=== PATIENT | female | born 1960 | race Caucasian/White ===

== ENCOUNTER 2019-07-18 10:17 | Outpatient (RCR) | payer BC, SELFPAY | END 2019-08-08 23:59 | disposition home or self-care (01) | LOC: SPT 10:17 | PROVIDERS: PCP Family Medicine; Referring Provider Family Medicine; Visit Provider Family Medicine | DX: M54.42 Lumbago with sciatica, left side (principal); M54.41 Lumbago with sciatica, right side | CPT/HCPCS: 97110; 97161 ==

== ENCOUNTER 2019-09-27 09:11 | Outpatient (CLI) | payer BC, SELFPAY ==
--- NOTE | 2019-09-27 09:17 | MM_ITS ---
WS: [id number] BILATERAL DIGITAL SCREENING MAMMOGRAPHY WITH CAD CLINICAL INFORMATION: SCREENING HISTORY: Screening mammogram. No current complaints. COMPARISON: TECHNIQUE: Bilateral CC and MLO views. FINDINGS: Scattered fibroglandular densities bilaterally. No suspicious focal mass, asymmetry, calcifications, or architectural distortion. No evidence of malignancy. MM/[place] [id number] IMPRESSION: BI-RADS: 1-Negative FOLLOW UP: 1 Year Follow-up Recommend return to annual screening mammography.
== END 2019-09-27 09:12 | disposition home or self-care (01) ==
LOC: RADSHAW 09:13
PROVIDERS: PCP Family Medicine; Visit Provider Obstetrics & Gynecology
DX: Z12.31 Encounter for screening mammogram for malignant neoplasm of breast (principal)
CPT/HCPCS: 77067

== ENCOUNTER → 2019-10-18 09:12 | Outpatient (BNVA) | payer BC, SELFPAY | PROVIDERS: PCP Family Medicine; Visit Provider Family Medicine | DX: R10.2 Pelvic and perineal pain (principal); Z13.6 Encounter for screening for cardiovascular disorders; M54.42 Lumbago with sciatica, left side; M54.41 Lumbago with sciatica, right side; G89.29 Other chronic pain; Z68.28 Body mass index [BMI] 28.0-28.9, adult; F17.211 Nicotine dependence, cigarettes, in remission | CPT/HCPCS: 80053; 80061; 84450; 85025; 87070 ==

== ENCOUNTER 2019-11-21 14:07 | Outpatient (CLI) | payer BC, SELFPAY ==
--- NOTE | 2019-11-21 14:15 | US_ITS ---
WS: [id number] TRANSVAGINAL PELVIC ULTRASOUND HISTORY: pelvic pain COMPARISON: None available. Uterus: 7.3 cm x 6.0 cm x 3.4 cm. Normal size anteverted uterus. No fibroid or mass. Endometrium: 0.4 cm. Normal homogeneity. Small nabothian cysts. Right ovary: Not visualized. No adnexal mass. Left ovary: Not visualized. No adnexal mass. No free fluid. US/US transvaginal [id number] IMPRESSION: Mildly heterogeneous uterus. No fibroid identified. Normal endometrium.
== END 2019-11-21 14:08 | disposition home or self-care (01) ==
LOC: US 14:12
PROVIDERS: PCP Family Medicine; Visit Provider Family Medicine
DX: R10.2 Pelvic and perineal pain (principal)
CPT/HCPCS: 76830

== ENCOUNTER → 2020-06-17 08:30 | Outpatient (BNVA) | payer BC, SELFPAY | PROVIDERS: PCP Family Medicine; Visit Provider Obstetrics & Gynecology | DX: R39.9 Unspecified symptoms and signs involving the genitourinary system (principal); Z78.0 Asymptomatic menopausal state | CPT/HCPCS: 81000 ==

== ENCOUNTER 2020-09-25 08:19 | Outpatient (CLI) | payer BC, SELFPAY ==
[2020-09-25 08:41] VITALS: BP 128/80; BP 130/81; PULSE 82; PULSE 90; RESP 18; TEMP 36.7; TEMP 36.8; O2SAT 94; BMI 27.3
[2020-09-25 09:01] VITALS: BP 117/74; PULSE 85; RESP 18; O2SAT 95
== END 2020-09-25 08:20 | disposition home or self-care (01) ==
LOC: OPS 08:22
PROVIDERS: PCP Family Medicine; Visit Provider Nurse Practitioner
DX: U07.1 COVID-19 (principal)
CPT/HCPCS: 96365

== ENCOUNTER 2020-11-06 08:02 | Outpatient (CLI) | payer BC, SELFPAY ==
--- NOTE | 2020-11-06 08:07 | MM_ITS ---
WS: [id number] Exam: [id number] Date/Time of Exam: 11/06/2020 8:09 AM Reason For Exam: SCREENING VIEWS: MLO and CC views both breasts. Comparison made with prior exam of 04/14/2017, 06/17/2018 and 09/27/2019. Findings: There was no sign of mass, architectural distortion or suspicious calcification in either breast. Sc attered fibroglandular densities MM/[id number] Impression: BI-RADS: 2-Benign FOLLOW-UP: 1 Year Follow-up This mammogram was also analyzed by the Computer Aided Detection System R2 [employer]board [employer].
== END 2020-11-06 08:03 | disposition home or self-care (01) ==
LOC: RADSHAW 08:07
PROVIDERS: PCP Family Medicine; Visit Provider Family Medicine
DX: Z12.31 Encounter for screening mammogram for malignant neoplasm of breast (principal)
CPT/HCPCS: 77067

== ENCOUNTER 2021-02-13 12:14 | Outpatient (CLI) | payer BC, SELFPAY ==
--- NOTE | 2021-02-13 12:45 | USCV_ITS ---
Essie Shepard Age: 60 Gender: F : 1960 Exam Date: 02/13/2021 12:45 Ordering Phys: Sepideh Hunt DO Technologist: Tawanda Ruby Exam Location: [facility] – [place] Indication: PRE-SYNCOPE Risk Factors: Previous Vascular Surgery: Right Brachial BP: / Left Brachial BP: / Right Left Velocity (cm/s) Spectral Plaque Velocity (cm/s) Spectral Plaque Syst/Diast Broadening Syst/Diast Broadening 114.80/14.40 Prox CCA 126.50/ 28.20 116.90/20.90 Mid CCA 112.80/ 26.50 98.10/ 26.50 Distal CCA 111.90/ 33.30 86.20/ 21.80 Prox ICA 81.20 / 25.60 103.30/32.60 Mid ICA 97.40 / 31.60 95.50/ 32.60 Distal ICA 104.20/ 35.90 110.30 ECA 112.80 0.88 ICA/CCA 0.86 Antegrade Vertebral Antegrade 61.40/ 12.40 cm/s 64.10/ 20.50 cm/s Tri Subclavian Tri 97.40 140.0 0 FINDINGS Mild plaques of the bifurcations and internal carotid arteries bilaterally Normal arterial Doppler velocities in the internal, external, vertebral and subclavian arteries bilaterally Normal velocity ratios CONCLUSIONS Mild diffuse plaques bilaterally in the internal carotid arteries and at the bifurcations, suggesting less than 50% stenosis Dr Haylee Prado MD [facility] (Electronically Signed) Final Date: 14 February 2021 15:57 S
--- NOTE | 2021-02-13 13:30 | USCV_ITS ---
Essie Shepard Age: 60 Gender: F : 1960 Exam Date: 02/13/2021 13:07 Ordering Phys: Sepideh Hunt DO Technologist: Exam Location: [facility] – [place] Indication: PRE SYNCOPE BP: 122 / 76 HR: 92 Rhythm: Sinus Technical Quality: Adequate MEASUREMENTS (Male / Female) Normal Values 2D ECHO LV Diastolic Diameter PLAX 4.1 cm 4.2 - 5.9 / 3.9 - 5.3 cm LV Systolic Diameter PLAX 2.6 cm IVS Diastolic Thickness 0.7 cm 0.6 - 1.0 / 0.6 - 0.9 cm IVS Systolic Thickness 1.3 cm LVPW Diastolic Thickness 0.9 cm 0.6 - 1.0 / 0.6 - 0.9 cm LVPW Systolic Thickness 1.3 cm LVOT Diameter 2.1 cm LV Ejection Fraction 2D Teich 64.4 % LV Ejection Fraction MOD 2C 54.0 % LV Ejection Fraction 2C AL 53.1 % LA Diameter 3.6 cm LA Width 3.6 cm LA Height 4.0 cm RA Width 2.8 cm RA Height 4.3 cm Aorta at Sinotubular Diameter 2.8 cm M-MODE LV Diastolic Diameter MM 4.9 cm 4.2 - 5.9 / 3.9 - 5.3 cm LV Systolic Diameter MM 3.4 cm LV Ejection Fraction MM Teich 60.0 % IVS Diastolic Thickness MM 0.9 cm 0.6 - 1.0 / 0.6 - 0.9 cm IVS Systolic Thickness MM 1.5 cm LVPW Diastolic Thickness MM 1.0 cm 0.6 - 1.0 / 0.6 - 0.9 cm LVPW Systolic Thickness MM 2.0 cm RV Diastolic Diameter MM 1.2 cm Aortic Annulus Diameter 3.2 cm LA Ao Ratio MM 1.2 MV E Point Septal Separation 0.6 cm DOPPLER AV Peak Velocity 136.0 cm/s LVOT Peak Velocity 110.0 cm/s AV Area Cont Eq vti 2.6 cm squared AV Area Cont Eq pk 2.7 cm squared MV Area PHT 5.0 cm squared Mitral E to A Ratio 0.9 MV E' Velocity 42.0 cm/s Mitral E to MV E' Ratio 6.8 Mitral E to LV E' Lateral Ratio 6.9 Mitral E to LV E' Septal Ratio 6.7 TR Peak Velocity 130.3 cm/s TR Peak Gradient 6.8 mmHg TV Peak E Velocity 78.0 cm/s Right Atrial Pressure 3.0 mmHg Pulmonary Artery Systolic Pressu 9.8 mmHg PV Peak Velocity 73.0 cm/s FINDINGS Left Ventricle Normal left ventricular size and systolic function, EF 61 %. No regional wall motion abnormalities. Right Ventricle Normal right ventricular size and systolic function. Right Atrium Normal right atrial size. Left Atrium Normal left atrial size. Mitral Valve No gross abnormalities noted Aortic Valve No aortic valve stenosis. Tricuspid Valve Structurally normal tricuspid valve. Pulmonic Valve Structurally normal pulmonic valve without significant stenosis. There is no pulmonic regurgitation. Pericardium Normal pericardium without effusion. Aorta Normal ascending aorta dimension. CONCLUSIONS Normal left ventricular size and systolic function, EF 61 %. No regional wall motion abnormalities. Normal cardiac chamber sizes. No significant stenotic or regurgitant lesions No intracardiac masses There is no pericardial effusion. No previous study is available for comparison. Dr Haylee Prado MD FAC (Electronically Signed) Final Date: 13 February 2021 17:52 S
== END 2021-02-13 12:15 | disposition home or self-care (01) ==
LOC: RAD 12:16
PROVIDERS: PCP Family Medicine; Visit Provider Family Medicine
DX: R55 Syncope and collapse (principal)
CPT/HCPCS: 93306; 93880

== ENCOUNTER → 2021-04-07 15:45 | Outpatient (BNVA) | payer BC, SELFPAY | PROVIDERS: PCP Family Medicine; Visit Provider Family Medicine | DX: E78.5 Hyperlipidemia, unspecified (principal) | CPT/HCPCS: 80053 ==

== ENCOUNTER → 2021-06-25 08:32 | Outpatient (BNVA) | payer BC, SELFPAY | PROVIDERS: PCP Family Medicine; Visit Provider Obstetrics & Gynecology | DX: Z12.4 Encounter for screening for malignant neoplasm of cervix (principal) | CPT/HCPCS: 87624 ==

== ENCOUNTER 2021-09-16 07:27 | Outpatient (CLI) | payer BC, SELFPAY ==
--- NOTE | 2021-09-16 | ECG_ITS ---
[facility] Test Date: 2021-09-16 Pat Name: Essie Shepard Department: Room: Gender: Female [employer] Supervisor: : 1960 Requested By: Sepideh Hunt Order Number: [id number] Sumner MD: Kellie Saavedra M.D. Interpretive Statements NAME OF STUDY: EXERCISE SESTAMIBI STRESS TEST INDICATION: Dizziness/syncope Baseline blood pressure of 143/64 mm Hg, heart rate of 78 beats per minute and oxygen saturation of 96%. EKG showed normal sinus rhythm, normal axis with normal ST-Ts. The patient exercised for 7 minutes 30 seconds on a standard Mahad protocol. Patient attained a maximum heart rate of 152 beats per minute(94% of the maximum predicted heart rate) with a blood pressure at the peak exercise of 163/91 mm Hg and oxygen saturation of 97%. The EKG at the peak exercise revealed sinus tachycardia with no significant ST-T wave changes. Patient did not have any chest pain or any significant arrhythmis with the exercise. The study was terminated due to maximal effort. During the recovery phase, there were no new changes. Blood pressure at the end of the recovery phase was 133/96 mm Hg with a heart rate of 89 beats per minute and oxygen saturation of 97%. CONCLUSION: 1. Normal EKG response to treadmill exercise. 2. No exercise-induced chest pain or cardiac arrhythmia 3. Excellent exercise tolerance, attained a maximum of 10.2 METs. Maximum VO2 of 35.7 mL/kg/min. 4. Baseline hypertension with normal response to exercise. 5. Perfusion scan will be documented separately. Electronically Signed On 09-23-2021 16:43:41 CDT by Kellie Saavedra M.D. [id number]
[2021-09-16 08:42] VITALS: BMI 29.2
--- NOTE | 2021-09-16 08:44 | NMCV_ITS ---
NM gareth perf SPECT r/s* [id number] Essie Shepard Age: 61 Gender: F : 1960 Exam Date: 09/16/2021 09:05 Ordering Phys: Sepideh Hunt DO Technologist: EZEQUIEL Berg Exam Location: [facility] Indications: SYNCOPE, COLLAPSE STRESS TEST Please see separate stress test report in [facility] for full findings IMAGE PROTOCOL Rest/Stress 1 Exercise Day Radiopharmaceutical Dose (mCi) Administration Site Administered by Rest: Tc-99m 10.6 IV EZEQUIEL Bunn Sestamibi Stress:Tc-99m 32.6 IV EZEQUIEL Bunn Sestamiradha Rest: 16-Sep-2021 60 Discovery 630 Stress: 16-Sep-2021 30 Discovery 630 Images obtained in supine and prone position. Radiopharmaceutical was injected at 91 % maximum heart rate. SPECT RESULTS Technical Quality: Excellent Raw Data Analysis: Normal Image Corrections: No attenuation or motion correction applied Summed Stress Score: 0 Summed Rest Score: 0 Summed Difference Score: 0 PERFUSION FINDINGS SPECT images demonstrate homogeneous tracer distribution throughout the myocardium. FUNCTIONAL RESULTS (calculated via Gated SPECT) Stress Image LV EF (%): 74 Stress EDV (mL):65 TID: 0.93 Stress ESV (mL):17 FUNCTIONAL FINDINGS: The left ventricle is normal in size. Transient Ischemia Dilatation of 0.93. The left ventricular ejection fraction is normal with a value of 74%. There is normal left ventricular wall thickening. Normal end-diastolic and end-systolic volumes. IMPRESSIONS 1. Myocardial perfusion imaging is normal. 2. Overall left ventricular systolic function is normal without regional wall motion abnormalities, LVEF=74%. 3. EKG portion of the study will be reported separately. Kellie Saavedra MD (Electronically Signed) Final Date: 22 September 2021 08:20 S
[2021-09-16 09:57] VITALS: BP 133/96; PULSE 85
== END 2021-09-16 07:28 | disposition home or self-care (01) ==
LOC: CDL 07:28
PROVIDERS: PCP Family Medicine; Visit Provider Family Medicine
DX: R55 Syncope and collapse (principal)
CPT/HCPCS: 78452; 93017; A9500

== ENCOUNTER 2021-11-14 07:41 | Outpatient (CLI) | payer BC, SELFPAY ==
--- NOTE | 2021-11-14 07:44 | MM_ITS ---
WS: [id number] BILATERAL SCREENING DIGITAL TOMOSYNTHESIS MAMMOGRAM WITH CAD HISTORY: Screening exam. COMPARISON: 11/06/2020 at 09/27/2019 Bilateral CC and MLO views with tomosynthesis and synthetic mammography submitted. Computer aided det ection analyzed. Breast composition: There are scattered areas of fibroglandular density. No suspicious masses, microc alcifications or architectural distortion. MM/[place] [id number] IMPRESSION: BI-RADS: 1-Negative FOLLOW UP: 1 Year Follow-up
== END 2021-11-14 07:42 | disposition home or self-care (01) ==
LOC: RAD 07:41
PROVIDERS: PCP Family Medicine; Visit Provider Obstetrics & Gynecology
DX: Z12.31 Encounter for screening mammogram for malignant neoplasm of breast (principal)
CPT/HCPCS: 77063; 77067

== ENCOUNTER → 2022-07-09 15:33 | Outpatient (BNVA) | payer BC, SELFPAY | PROVIDERS: PCP Family Medicine; Visit Provider Family Medicine | DX: E78.5 Hyperlipidemia, unspecified (principal) | CPT/HCPCS: 80053 ==

== ENCOUNTER → 2022-10-15 08:56 | Outpatient (BNVA) | payer BC, SELFPAY | PROVIDERS: PCP Family Medicine; Visit Provider Family Medicine | DX: E78.5 Hyperlipidemia, unspecified (principal); Z13.6 Encounter for screening for cardiovascular disorders | CPT/HCPCS: 80053; 80061; 83036; 84443; 85025 ==

== ENCOUNTER 2022-11-16 07:47 | Outpatient (CLI) | payer BC, SELFPAY ==
--- NOTE | 2022-11-16 08:12 | MM_ITS ---
WS: [id number] SCREENING DIGITAL TOMOSYNTHESIS MAMMOGRAM WITH CAD HISTORY: screening mammogram COMPARISON: 11/14/2021 and 12/06/2020 Bilateral CC and MLO with tomosynthesis views submitted. Synthetic mammography reviewed. Computer aid ed detection analyzed. Breast composition: There are scattered areas of fibroglandular density. No suspicious masses, microc alcifications or architectural distortion. IMPRESSION: MM/[place] [id number] BI-RADS: 1-Negative FOLLOW UP: 1 Year Follow-up
== END 2022-11-16 07:48 | disposition home or self-care (01) ==
PROVIDERS: PCP Family Medicine; Visit Provider Family Medicine
DX: Z12.31 Encounter for screening mammogram for malignant neoplasm of breast (principal)
CPT/HCPCS: 77063; 77067

== ENCOUNTER → 2024-01-13 07:41 | Outpatient (BNVA) | payer BC, SELFPAY | PROVIDERS: PCP Family Medicine; Visit Provider Family Medicine | DX: Z00.00 Encounter for general adult medical examination without abnormal findings (principal); I10 Essential (primary) hypertension | CPT/HCPCS: 80053; 80061; 84443; 85025 ==

== ENCOUNTER 2024-01-19 10:11 | Outpatient (CLI) | payer BC, SELFPAY ==
--- NOTE | 2024-01-19 10:30 | MM_ITS ---
WS: [id number] BILATERAL SCREENING DIGITAL TOMOSYNTHESIS MAMMOGRAM WITH CAD HISTORY: screening for breast cancer COMPARISON: 11/16/2022, 11/14/2021 Bilateral CC and MLO views with tomosynthesis and synthetic mammography submitted. Computer aided det ection analyzed. Breast composition: There are scattered areas of fibroglandular density. No suspicious masses, microc alcifications or architectural distortion. Benign calcification anterior LEFT breast. MM/MM scr BI tomosynthesis [id number] IMPRESSION: BI-RADS: 2 - Benign. FOLLOW UP: 1 Year Follow-up
== END 2024-01-19 10:12 | disposition home or self-care (01) ==
PROVIDERS: PCP Family Medicine; Visit Provider Family Medicine
DX: Z12.31 Encounter for screening mammogram for malignant neoplasm of breast (principal); R92.323 Mammographic fibroglandular density, bilateral breasts; R92.1 Mammographic calcification found on diagnostic imaging of breast
CPT/HCPCS: 77063; 77067

== ENCOUNTER → 2024-11-15 14:45 | Outpatient (BNVA) | payer BC, SELFPAY | PROVIDERS: PCP Family Medicine | DX: R39.89 Other symptoms and signs involving the genitourinary system (principal); R10.9 Unspecified abdominal pain | CPT/HCPCS: 80053; 81000; 83690; 85025; 87086 ==

== ENCOUNTER 2025-01-19 08:15 | Outpatient (CLI) | payer BC, SELFPAY ==
--- NOTE | 2025-01-19 08:24 | MM_ITS ---
WS: [id number] BILATERAL SCREENING DIGITAL TOMOSYNTHESIS MAMMOGRAM WITH CAD HISTORY: SCREENING COMPARISON: 01/19/2024, 11/16/2022 Bilateral CC and MLO views with tomosynthesis and synthetic mammography submitted. Computer aided detection analyzed. Breast composition: There are scattered areas of fibroglandular density. No suspicious masses, microcalcifications or architectural distortion. Benign arterial calcifications in the central RIGHT breast. MM/MM scr BI tomosynthesis [id number] IMPRESSION: BI-RADS: 2 - Benign. FOLLOW UP: 1 Year Follow-up
== END 2025-01-19 08:16 | disposition home or self-care (01) ==
LOC: RAD 08:17
PROVIDERS: PCP Family Medicine; Visit Provider Family Medicine
DX: Z12.31 Encounter for screening mammogram for malignant neoplasm of breast (principal); R92.323 Mammographic fibroglandular density, bilateral breasts; R92.1 Mammographic calcification found on diagnostic imaging of breast
CPT/HCPCS: 77063; 77067

== ENCOUNTER → 2025-01-23 08:36 | Outpatient (BNVA) | payer BC, SELFPAY | PROVIDERS: PCP Family Medicine; Visit Provider Family Medicine | DX: Z00.00 Encounter for general adult medical examination without abnormal findings (principal) | CPT/HCPCS: 80053; 80061; 84443; 85025 ==